=== PATIENT | female | born 1985 | race Two or more races ===

== ENCOUNTER 2021-03-15 18:30 | Emergency (ER) | payer OTHER ==
[~2021-03-15] VITALS: Ht 152.4 cm; Wt 111.8 kg
[2021-03-15 18:50] VITALS: Ht 152.4 cm; Wt 111.8 kg
[2021-03-15] MEDS ORDERED: METHOCARBAMOL500 MG PO (23:47)
== END 2021-03-16 00:02 | disposition home or self-care (01) ==
LOC: D.ER 18:30
DX: S00.93XA Contusion of unspecified part of head, initial encounter (principal); S30.1XXA Contusion of abdominal wall, initial encounter; W11.XXXA Fall on and from ladder, initial encounter; S06.0X0A Concussion without loss of consciousness, initial encounter